=== PATIENT | male | born 1960 | race Two or more races ===

== ENCOUNTER 2024-06-06 16:02 | Emergency (ER) | payer BC ==
[~2024-06-06] VITALS: Ht 167.6 cm; Wt 73.9 kg
[2024-06-06] MEDS ORDERED: ECOTRIN81 MG (16:22)
[2024-06-06] MEDS ORDERED: TOPROL XL25 M1 (16:22)
[2024-06-06] MEDS ORDERED: TAMS0.4C PO (18:19)
[2024-06-06] MEDS ORDERED: CIPRO500 MG PO (18:19)
== END 2024-06-06 18:26 | disposition home or self-care (01) ==
LOC: ER 16:04
DX: R33.9 Retention of urine, unspecified (principal)